=== PATIENT | female | born 1995 ===

== ENCOUNTER 2018-04-09 10:18 | Emergency (ER) ==
[~2018-04-09] VITALS: Ht 160 cm; Wt 58.6 kg
== END 2018-04-09 13:45 | disposition left against medical advice (07) ==
LOC: COL.ER 10:18
DX: N93.9 Abnormal uterine and vaginal bleeding, unspecified (principal)

== ENCOUNTER 2020-11-04 08:55 | Emergency (ER) | payer OTHER ==
[~2020-11-04] VITALS: Ht 160 cm; Wt 67.7 kg
[2020-11-04 09:05] VITALS: BP 122/88; TEMP 98.8
[2020-11-04 09:46] LABS: BASO % 0.6 % (0.0-2.0); EOS # 0.1 (0.0-0.7); EOS % 1.4 % (0-4.0); GRAN # 1.9 (1.4-6.5); GRAN % 51.3 % (42.2-75.2); HEMOGLOBIN 14.4 g/dl (12.5-16.0); LYMPH # 1.2 (1.2-3.4); LYMPH % 33.9 % (20.0-51.0); MEAN CELL VOLUME 88 fl (80.0-100.0); MEAN CORPUSCULAR HEMOGLOBIN 29 pg (27.0-31.0); MEAN CORPUSCULAR HGB CONC 34 g/dl (33.0-37.0); MONO # 0.5 (0.1-0.6); MONO % 12.5 % (1.7-9.3); PLATELET COUNT 209 K/mm3 (130-400); REDCELL DISTRIBUTION WIDTH-CV 12.7 % (11.5-14.5)
[2020-11-04 09:55] LABS: ANION GAP 8 mmol/L (7-16); BLOOD UREA NITROGEN 12 mg/dL (7-17); CALCIUM 8.9 mg/dL (8.4-10.2); CARBON DIOXIDE 27 mmol/L (22-30); CHLORIDE 105 mmol/L (98-107); CREATININE, serum 0.74 (0.52-1.25); GLUCOSE 104 mg/dL (74-106); POTASSIUM 4.4 mmol/L (3.4-5.0); SODIUM 140 mmol/L (137-145)
[2020-11-04 10:09] LABS: TROPONIN-I < 0.012 ng/mL (0.000-0.035)
[2020-11-04] MEDS ORDERED: ALBUTEROL SULFAT3 M3 IH (10:24)
[2020-11-04 10:31] VITALS: PULSE 89
== END 2020-11-04 10:32 | disposition home or self-care (01) ==
LOC: COL.ER 08:55
PROVIDERS: Emergency Medicine
DX: U07.1 COVID-19 (principal); J45.909 Unspecified asthma, uncomplicated
CPT/HCPCS: J1100